=== PATIENT | male | born 1955 | race Two or more races ===

== ENCOUNTER 2020-08-22 11:30 | Outpatient (CLI) | payer MEDICARE, BC | END 2020-08-22 23:59 | disposition home or self-care (01) | LOC: MSC 11:30 | PROVIDERS: ATTEND Internal Medicine | DX: M75.22 Bicipital tendinitis, left shoulder (principal); R53.83 Other fatigue; E78.5 Hyperlipidemia, unspecified; Z98.890 Other specified postprocedural states; N52.9 Male erectile dysfunction, unspecified ==